=== PATIENT | female | born 1960 | race Caucasian/White ===

== ENCOUNTER 2017-09-12 13:38 | Inpatient (IN) | payer BC ==
[2017-09-12] MEDS: METHYLPREDNISOLONE 125 MG INJ IV (14:20)
[2017-09-12] MEDS: ALBUTEROL 0.5% (NEB) 2.5 MG/0.5 ML AMP NEB (14:22)
[2017-09-12] MEDS: IPRATROPIUM (NEB) 0.5 MG/2.5 ML AMP NEB (14:22)
[2017-09-12 14:42] LABS: ADD MAN DIFF? NO
[2017-09-12 14:44] LABS: BASOPHILS % 0.3 % (0.0-2.0); EOSINOPHILS # 0.2 10^3/ul (0.0-0.5); EOSINOPHILS % 2.4 % (0.0-7.0); HEMATOCRIT 37.4 % (37.0-47.0); HEMOGLOBIN 12.5 g/dl (12.0-16.0); LYMPHOCYTES # 1.6 10^3/ul (0.8-2.9); LYMPHOCYTES % 22.7 % (15.0-51.0); MEAN CORPUSCULAR HEMOGLOBIN 26.7 pg (29.0-33.0); MEAN CORPUSCULAR HGB CONC 33.4 g/dl (32.0-37.0); MEAN CORPUSCULAR VOLUME 79.7 fl (82.0-101.0); MEAN PLATELET VOLUME 9.9 fl (7.4-10.4); MONOCYTE # 0.5 10^3/ul (0.3-0.9); MONOCYTES % 7.5 % (0.0-11.0); NEUTROPHIL # 4.8 10^3/ul (1.6-7.5); NEUTROPHILS % 66.8 % (39.0-77.0); PLATELET COUNT 221 10^3/UL (140-415); RED BLOOD COUNT 4.69 10^6/ul (4.20-5.40); RED CELL DISTRIBUTION WIDTH 14.3 % (11.5-14.5)
[2017-09-12 14:44] LABS: WHITE BLOOD COUNT 7.2 10^3/ul (4.8-10.8)
[2017-09-12 15:11] LABS: ANION GAP 21 (8-16); BLOOD UREA NITROGEN 14 mg/dl (7-20); CALCIUM 9.2 mg/dl (8.4-10.2); CARBON DIOXIDE 25 mmol/L (21-31); CHLORIDE 100 mmol/L (97-110); CREATININE 0.74 mg/dl (0.44-1.00); GLUCOSE 208 mg/dl (70-220); POTASSIUM 3.9 mmol/L (3.5-5.1); SODIUM 142 mmol/L (135-144)
[2017-09-12 15:40] LABS: TROPONIN-I < 0.012 ng/ml (0.00-0.12)
[2017-09-12] MEDS: ALBUTEROL 0.083% (NEB) 2.5 MG/3 ML AMP HHN (16:59)
[2017-09-12] MEDS: IPRATROPIUM (NEB) 0.5 MG/2.5 ML AMP HHN (17:00)
[2017-09-12] MEDS ORDERED: ACETAMINOPHEN 325 MG TAB PO ×2 (17:30→18:30)
[2017-09-12] MEDS ORDERED: ONDANSETRON 4 MG INJ IV ×2 (17:30→18:30)
[2017-09-12] MEDS ORDERED: HYDROCODONE/APAP (5/325) TAB PO (18:30)
[2017-09-12] MEDS ORDERED: DOCUSATE SODIUM 100 MG CAP PO (18:30)
[2017-09-12] MEDS ORDERED: ZOLPIDEM 5 MG TAB PO (18:30)
[2017-09-12] MEDS ORDERED: NACL 0.9% 3 ML SYG IV (18:30)
[2017-09-12] MEDS ORDERED: GLUCAGON 1 MG INJ IM (19:00)
[2017-09-12] MEDS ORDERED: DEXTROSE 50% 50 ML SYRINGE IV ×2 (19:00)
[2017-09-12] MEDS ORDERED: GLUCOSE GEL 15 GRAM TUBE PO ×2 (19:00)
[2017-09-12] MEDS ORDERED: GLUCOSE GEL 15 GRAM TUBE BUCCAL (19:00)
[2017-09-12] MEDS: morphine 2 MG INJ IV ×2 (19:38→21:45)
[2017-09-12] MEDS: SALMETEROL/FLUTICASONE 250/50 INHA INH (21:04)
[2017-09-12] MEDS: INSULIN GLARGINE [LANtus] 3 ML PEN SC (21:13)
[2017-09-12] MEDS: INSULIN ASPART [NOVOLOG] 3 ML PEN SC (21:15)
[2017-09-12] MEDS: ALBUTEROL/IPRATROPIUM (NEB) 3 ML AMP HHN (21:56)
[2017-09-13] MEDS: METHYLPREDNISOLONE 125 MG INJ IV ×4 (00:08→22:27)
[2017-09-13] MEDS: ACCU-CHEK XX (02:00)
[2017-09-13] MEDS: INSULIN ASPART [NOVOLOG] 3 ML PEN SC ×7 (08:22→21:06)
[2017-09-13] MEDS: SALMETEROL/FLUTICASONE 250/50 INHA INH ×2 (08:24→20:59)
[2017-09-13 08:58] LABS: ADD MAN DIFF? NO
[2017-09-13 09:06] LABS: HEMATOCRIT 37.1 % (37.0-47.0); HEMOGLOBIN 12.2 g/dl (12.0-16.0); LYMPHOCYTES # 0.7 10^3/ul (0.8-2.9); MEAN CORPUSCULAR HEMOGLOBIN 26.2 pg (29.0-33.0); MEAN CORPUSCULAR HGB CONC 32.9 g/dl (32.0-37.0); MEAN CORPUSCULAR VOLUME 79.8 fl (82.0-101.0); MEAN PLATELET VOLUME 10.2 fl (7.4-10.4); MONOCYTE # 0.3 10^3/ul (0.3-0.9); MONOCYTES % 3.9 % (0.0-11.0); NEUTROPHIL # 5.4 10^3/ul (1.6-7.5); NEUTROPHILS % 84.6 % (39.0-77.0); PLATELET COUNT 231 10^3/UL (140-415); RED BLOOD COUNT 4.65 10^6/ul (4.20-5.40); RED CELL DISTRIBUTION WIDTH 14.1 % (11.5-14.5)
[2017-09-13 09:06] LABS: WHITE BLOOD COUNT 6.4 10^3/ul (4.8-10.8)
[2017-09-13 09:27] LABS: ANION GAP 15 (8-16); BLOOD UREA NITROGEN 15 mg/dl (7-20); CALCIUM 9.3 mg/dl (8.4-10.2); CARBON DIOXIDE 25 mmol/L (21-31); CHLORIDE 103 mmol/L (97-110); CREATININE 0.53 mg/dl (0.44-1.00); GLUCOSE 265 mg/dl (70-220); MAGNESIUM 1.8 mg/dl (1.7-2.5); PHOSPHORUS 4.3 mg/dl (2.5-4.9); POTASSIUM 4.4 mmol/L (3.5-5.1); SODIUM 139 mmol/L (135-144)
[2017-09-13 09:46] LABS: HEMOGLOBIN A1C 9.3 % (0-5.9)
[2017-09-13] MEDS: ALBUTEROL/IPRATROPIUM (NEB) 3 ML AMP HHN (11:30)
[2017-09-13] MEDS: PROMETHAZINE/CODEINE 5ML CUP PO (17:08)
[2017-09-13] MEDS ORDERED: INSULIN GLARGINE [LANtus] 3 ML PEN SC (20:00)
[2017-09-13] MEDS: INSULIN GLARGINE [LANtus] 3 ML PEN SC (21:05)
[2017-09-14] MEDS: ACCU-CHEK XX (02:00)
[2017-09-14] MEDS: METHYLPREDNISOLONE 125 MG INJ IV ×2 (06:32→14:00)
[2017-09-14] MEDS: SALMETEROL/FLUTICASONE 250/50 INHA INH ×2 (08:24→20:50)
[2017-09-14] MEDS: INSULIN ASPART [NOVOLOG] 3 ML PEN SC ×7 (08:26→21:02)
[2017-09-14] MEDS: ALBUTEROL/IPRATROPIUM (NEB) 3 ML AMP HHN ×3 (09:15→20:43)
[2017-09-14] MEDS: METHYLPREDNISOLONE 40 MG INJ IV (20:50)
[2017-09-14] MEDS: INSULIN GLARGINE [LANtus] 3 ML PEN SC (22:26)
[2017-09-15] MEDS: ALBUTEROL/IPRATROPIUM (NEB) 3 ML AMP HHN ×2 (01:17→09:59)
[2017-09-15] MEDS: ACCU-CHEK XX (02:00)
[2017-09-15] MEDS: METHYLPREDNISOLONE 40 MG INJ IV ×2 (07:36→20:55)
[2017-09-15] MEDS: SALMETEROL/FLUTICASONE 250/50 INHA INH ×2 (07:36→20:54)
[2017-09-15] MEDS: INSULIN ASPART [NOVOLOG] 3 ML PEN SC ×7 (07:39→21:00)
[2017-09-15 08:21] LABS: AADO2 Arterial 173.1 mmHg (7.0-24.0); Allen Test ACCEPTAB; Arterial Base Excess -1.5 mmol/L (-3.0-3); Arterial Blood Gas Oxygen Sat 93.5 mmHG (95.0-98.0); Arterial COHb 0.3 % (0.0-3.0); Arterial Fraction of Oxyhgb 93.2 % (93.0-99.0); Arterial HCO3 21.6 mmol/L (22.0-26.0); Arterial MetHb 0 % (0.0-1.5); Arterial pCO2 31.9 mmhg (35-45); MODE NASAL CANNULA; Site Right Radial
[2017-09-15] MEDS: INSULIN GLARGINE [LANtus] 3 ML PEN SC (20:57)
[2017-09-16] MEDS: ACCU-CHEK XX (02:00)
[2017-09-16] MEDS: INSULIN ASPART [NOVOLOG] 3 ML PEN SC ×7 (07:48→21:00)
[2017-09-16] MEDS: SALMETEROL/FLUTICASONE 250/50 INHA INH ×2 (07:49→21:54)
[2017-09-16] MEDS: METHYLPREDNISOLONE 40 MG INJ IV (07:49)
[2017-09-16] MEDS: predniSONE 20 MG TAB PO (14:17)
[2017-09-16] MEDS: INSULIN GLARGINE [LANtus] 3 ML PEN SC (21:56)
[2017-09-17] MEDS: ACCU-CHEK XX (02:00)
[2017-09-17] MEDS: SALMETEROL/FLUTICASONE 250/50 INHA INH (08:13)
[2017-09-17] MEDS: predniSONE 20 MG TAB PO (08:14)
[2017-09-17] MEDS: INSULIN ASPART [NOVOLOG] 3 ML PEN SC ×4 (08:15→11:56)
== END 2017-09-17 14:30 | disposition home or self-care (01) | DRG 203 ==
LOC: MS4 17:09 → FTE 13:38
PROC: 5A09357 Assistance with Respiratory Ventilation, Less than 24 Consecutive Hours, Continuous Positive Airway Pressure (ICD-10-PCS; principal; 2017-09-12)
DX: J45.901 Unspecified asthma with (acute) exacerbation (principal); E11.9 Type 2 diabetes mellitus without complications; R09.02 Hypoxemia; J20.9 Acute bronchitis, unspecified; J06.9 Acute upper respiratory infection, unspecified; Z79.4 Long term (current) use of insulin; Z90.49 Acquired absence of other specified parts of digestive tract
CPT/HCPCS: 36415; 36600; 71045; 80048; 82803; 82962; 83036; 83735; 84100; 84484; 85025; 87400; 93005; 94640; 94644; 94645; 94660; 94664; 96372; 96374; 96375; 96376; 99291-25

== ENCOUNTER 2018-08-17 16:17 | Inpatient (IN) | payer BC ==
[2018-08-17 16:58] LABS: HEMATOCRIT 39.1 % (37.0-47.0); HEMOGLOBIN 12.9 g/dl (12.0-16.0); MEAN CORPUSCULAR HEMOGLOBIN 25.6 pg (29.0-33.0); MEAN CORPUSCULAR VOLUME 77.6 fl (82.0-101.0); MEAN PLATELET VOLUME 9.8 fl (7.4-10.4); PLATELET COUNT 267 10^3/UL (140-415); RED BLOOD COUNT 5.04 10^6/ul (4.20-5.40); RED CELL DISTRIBUTION WIDTH 13.1 % (11.5-14.5)
[2018-08-17 16:58] LABS: WHITE BLOOD COUNT 8.3 10^3/ul (4.8-10.8)
[2018-08-17] MEDS: METHYLPREDNISOLONE 125 MG INJ IV (16:58)
[2018-08-17] MEDS: ALBUTEROL 0.5% (NEB) 2.5 MG/0.5 ML AMP INH ×2 (16:58→18:59)
[2018-08-17] MEDS: IPRATROPIUM (NEB) 0.5 MG/2.5 ML AMP INH (16:58)
[2018-08-17 16:59] LABS: ADD MAN DIFF? YES
[2018-08-17 17:15] LABS: ANION GAP 15 (5-13); BLOOD UREA NITROGEN 10 mg/dl (7-20); CALCIUM 9.7 mg/dl (8.4-10.2); CARBON DIOXIDE 22 mmol/L (21-31); CHLORIDE 97 mmol/L (97-110); CREATININE 0.72 mg/dl (0.44-1.00); Estimated GFR > 60 mL/min (>60); POTASSIUM 4.6 mmol/L (3.5-5.1); SODIUM 134 mmol/L (135-144)
[2018-08-17 17:24] LABS: GLUCOSE 424 mg/dl (70-220)
[2018-08-17 17:26] LABS: ANISOCYTOSIS 1+ (0-0); BASOPHILS % (M) 1 % (0-2); EOSINOPHILS % (M) 16 % (0-7); LYMPHOCYTES #M 1.4 10^3/ul (0.8-2.9); LYMPHOCYTES % (M) 17 % (15-51); MICROCYTOSIS 1+ (0-0); MONOCYTE #M 0.3 10^3/ul (0.3-0.9); MONOCYTES % (M) 4 % (0-11); PLATELET ESTIMATE NORMAL; POIKILOCYTOSIS 1+ (0-0); SEGMENTED NEUTROPHILS (M) % 62 % (39-77); SMUDGE%M 7 % (0-0)
[2018-08-17 17:27] LABS: TROPONIN-I < 0.012 ng/ml (0.000-0.120)
[2018-08-17] MEDS: SOD CHLORIDE 0.9% 1,000 ML IV (18:44)
[2018-08-17] MEDS ORDERED: ACETAMINOPHEN 325 MG TAB PO (21:30)
[2018-08-17] MEDS ORDERED: ONDANSETRON 4 MG INJ IV ×2 (21:30→22:00)
[2018-08-17] MEDS: INSULIN REGULAR 10 ML INJ IV (21:51)
[2018-08-17] MEDS ORDERED: ALBUTEROL 0.083% (NEB) 2.5 MG/3 ML AMP HHN (22:00)
[2018-08-17] MEDS ORDERED: NACL 0.9% 3 ML SYG IV (22:00)
[2018-08-17] MEDS: INSULIN GLARGINE [LANTus] (100 UNITS/ML) SYG SC (23:09)
[2018-08-17] MEDS: HEPARIN 5,000 UNIT/1 ML VIAL SC (23:10)
[2018-08-18] MEDS: ACCU-CHEK XX (02:00)
[2018-08-18] MEDS: ALBUTEROL 0.083% (NEB) 2.5 MG/3 ML AMP HHN ×2 (02:18→05:31)
[2018-08-18] MEDS: INSULIN ASPART [NOVOLOG] 3 ML PEN SC ×5 (02:47→20:58)
[2018-08-18] MEDS: HEPARIN 5,000 UNIT/1 ML VIAL SC (05:46)
[2018-08-18 06:06] LABS: ADD MAN DIFF? NO
[2018-08-18 06:14] LABS: WHITE BLOOD COUNT 9.5 10^3/ul (4.8-10.8)
[2018-08-18 06:14] LABS: EOSINOPHILS % 0.1 % (0.0-7.0); HEMATOCRIT 36.8 % (37.0-47.0); LYMPHOCYTES % 10.9 % (15.0-51.0); MEAN CORPUSCULAR HEMOGLOBIN 25.4 pg (29.0-33.0); MEAN CORPUSCULAR HGB CONC 32.6 g/dl (32.0-37.0); MEAN PLATELET VOLUME 10.1 fl (7.4-10.4); MONOCYTE # 0.4 10^3/ul (0.3-0.9); MONOCYTES % 3.9 % (0.0-11.0); NEUTROPHIL # 8.1 10^3/ul (1.6-7.5); NEUTROPHILS % 84.8 % (39.0-77.0); PLATELET COUNT 263 10^3/UL (140-415); RED BLOOD COUNT 4.72 10^6/ul (4.20-5.40); RED CELL DISTRIBUTION WIDTH 13.1 % (11.5-14.5)
[2018-08-18 06:33] LABS: HEMOGLOBIN A1C 10.7 % (0-5.9)
[2018-08-18 06:51] LABS: ALANINE AMINOTRANSFERASE 17 IU/L (13-69); ALBUMIN 3.9 g/dl (3.3-4.9); ALBUMIN/GLOBULIN RATIO 1.77; ALKALINE PHOSPHATASE 66 IU/L (42-121); ANION GAP 15 (5-13); ASPARTATE AMINO TRANSFERASE 16 IU/L (15-46); BLOOD UREA NITROGEN 11 mg/dl (7-20); CALCIUM 9.9 mg/dl (8.4-10.2); CARBON DIOXIDE 22 mmol/L (21-31); CHLORIDE 103 mmol/L (97-110); CHOL/HDL RATIO 3.4 RATIO; CHOLESTEROL 225 mg/dl (100-200); CREATININE 0.45 mg/dl (0.44-1.00); Estimated GFR > 60 mL/min (>60); GLUCOSE 255 mg/dl (70-220); HDL CHOLESTEROL 66 mg/dl (37-92); LDL CHOLESTEROL,CALCULATED 146 mg/dl; MAGNESIUM 1.6 mg/dl (1.7-2.5); POTASSIUM 4.4 mmol/L (3.5-5.1); SODIUM 140 mmol/L (135-144); TOTAL PROTEIN 6.1 g/dl (6.1-8.1); TRIGLYCERIDES 67 mg/dl (0-149)
[2018-08-18 07:13] LABS: THYROID STIMULATING HORMONE 0.095 MIU/L (0.465-4.680)
[2018-08-18] MEDS: METHYLPREDNISOLONE 40 MG INJ IV ×2 (08:56→20:55)
[2018-08-18] MEDS: FLUTICASONE/VILANTEROL 100-25 INH (08:56)
[2018-08-18] MEDS ORDERED: NON-FORMULARY/PATIENT OWN MED (Salmeterol Xinaf/Fluticasone* (Advair*) 1 INH) INHALATION (09:00)
[2018-08-18] MEDS ORDERED: predniSONE 20 MG TAB PO (09:00)
[2018-08-18] MEDS: LEVALBUTEROL (NEB) 0.63 MG/3 ML AMP HHN ×4 (09:00→20:10)
[2018-08-18] MEDS ORDERED: GLUCAGON 1 MG INJ IM (09:00)
[2018-08-18] MEDS ORDERED: GLUCOSE GEL 15 GRAM TUBE BUCCAL (09:00)
[2018-08-18] MEDS ORDERED: GLUCOSE GEL 15 GRAM TUBE PO ×2 (09:00)
[2018-08-18] MEDS ORDERED: LEVALBUTEROL (NEB) 0.63 MG/3 ML AMP HHN (09:00)
[2018-08-18] MEDS ORDERED: DEXTROSE 50% 50 ML SYRINGE IV ×2 (09:00)
[2018-08-18] MEDS: ACETAMINOPHEN 325 MG TAB PO (11:07)
[2018-08-18] MEDS: INSULIN ASP PROT/ASPART (70/30) PEN SC ×2 (11:11→20:56)
[2018-08-18] MEDS: ENOXAPARIN 40 MG/0.4 ML SYG SC (11:12)
[2018-08-18] MEDS: AZITHROMYCIN 500MG/NS (PMX) 250 ML IVPB (13:49)
[2018-08-19] MEDS: ACCU-CHEK XX (02:00)
[2018-08-19] MEDS: INSULIN ASPART [NOVOLOG] 3 ML PEN SC ×4 (08:10→20:20)
[2018-08-19] MEDS: LEVALBUTEROL (NEB) 0.63 MG/3 ML AMP HHN ×4 (08:35→21:00)
[2018-08-19] MEDS: METHYLPREDNISOLONE 40 MG INJ IV ×2 (09:09→20:21)
[2018-08-19] MEDS: INSULIN ASP PROT/ASPART (70/30) PEN SC ×2 (09:09→20:19)
[2018-08-19] MEDS: ENOXAPARIN 40 MG/0.4 ML SYG SC (09:09)
[2018-08-19] MEDS: FLUTICASONE/VILANTEROL 100-25 INH (09:10)
[2018-08-19] MEDS: AZITHROMYCIN 250 MG TAB PO (09:10)
[2018-08-19] MEDS ORDERED: POLYETHYLENE GLYCOL 17 GM PACKET PO (12:00)
[2018-08-19] MEDS: GUAIFENESIN LA 600 MG TABSR PO ×2 (13:49→20:21)
[2018-08-19] MEDS ORDERED: INSULIN GLARGINE [LANTus] (100 UNITS/ML) SYG SC (20:00)
[2018-08-19] MEDS: INSULIN GLARGINE [LANTus] (100 UNITS/ML) SYG SC (20:18)
[2018-08-20] MEDS: ACCU-CHEK XX (02:00)
[2018-08-20] MEDS: INSULIN ASPART [NOVOLOG] 3 ML PEN SC ×6 (02:59→20:37)
[2018-08-20] MEDS: METHYLPREDNISOLONE 40 MG INJ IV ×2 (08:14→20:35)
[2018-08-20] MEDS: AZITHROMYCIN 250 MG TAB PO (08:15)
[2018-08-20] MEDS: GUAIFENESIN LA 600 MG TABSR PO ×2 (08:15→20:37)
[2018-08-20] MEDS: INSULIN ASP PROT/ASPART (70/30) PEN SC ×2 (08:15→20:35)
[2018-08-20] MEDS: ENOXAPARIN 40 MG/0.4 ML SYG SC (08:16)
[2018-08-20] MEDS: FLUTICASONE/VILANTEROL 100-25 INH (08:16)
[2018-08-20] MEDS: LEVALBUTEROL (NEB) 0.63 MG/3 ML AMP HHN ×4 (08:21→20:14)
[2018-08-20] MEDS: INSULIN GLARGINE [LANTus] (100 UNITS/ML) SYG SC (20:34)
[2018-08-21 06:15] LABS: ANION GAP 11 (5-13); BLOOD UREA NITROGEN 23 mg/dl (7-20); CALCIUM 9.8 mg/dl (8.4-10.2); CARBON DIOXIDE 26 mmol/L (21-31); CHLORIDE 100 mmol/L (97-110); CREATININE 0.56 mg/dl (0.44-1.00); GLUCOSE 299 mg/dl (70-220); MAGNESIUM 1.9 mg/dl (1.7-2.5); PHOSPHORUS 4.9 mg/dl (2.5-4.9); POTASSIUM 4.8 mmol/L (3.5-5.1); SODIUM 137 mmol/L (135-144)
[2018-08-21] MEDS: INSULIN ASPART [NOVOLOG] 3 ML PEN SC ×4 (08:00→11:57)
[2018-08-21] MEDS: ENOXAPARIN 40 MG/0.4 ML SYG SC (08:01)
[2018-08-21] MEDS: AZITHROMYCIN 250 MG TAB PO (08:02)
[2018-08-21] MEDS: GUAIFENESIN LA 600 MG TABSR PO (08:02)
[2018-08-21] MEDS: FLUTICASONE/VILANTEROL 100-25 INH (08:02)
[2018-08-21] MEDS: LEVALBUTEROL (NEB) 0.63 MG/3 ML AMP HHN ×2 (08:09→12:59)
[2018-08-21] MEDS: predniSONE 20 MG TAB PO (08:48)
== END 2018-08-21 13:45 | disposition home or self-care (01) | DRG 203 ==
LOC: E/R 16:17 → PP2 21:17
DX: J45.901 Unspecified asthma with (acute) exacerbation (principal); E11.9 Type 2 diabetes mellitus without complications
CPT/HCPCS: 71045; 80048; 80053; 80061; 80069; 82962; 83036; 83735; 84443; 84484; 85025; 93005; 94640; 94644; 94645; 94664; 96361; 96374; 99285-25

== ENCOUNTER 2018-10-14 13:25 | Inpatient (IN) | payer BC ==
[2018-10-14 13:59] LABS: ADD MAN DIFF? NO
[2018-10-14] MEDS: SODIUM CHLORIDE 0.9% 1L BAG IV* (14:00)
[2018-10-14] MEDS: DEXAMETHASONE 10 MG/ML 1 ML INJ IV (14:00)
[2018-10-14] MEDS: CEFTRIAXONE 1 GM/50 ML (PMX) 50 ML IVPB (14:00)
[2018-10-14 14:05] LABS: ABNORMAL IP MESSAGE 1; BASOPHIL # 0.1 10^3/ul (0.0-0.1); BASOPHILS % 0.4 % (0.0-2.0); EOSINOPHILS % 15.5 % (0.0-7.0); HEMATOCRIT 39.4 % (37.0-47.0); HEMOGLOBIN 12.7 g/dl (12.0-16.0); LYMPHOCYTES # 2.9 10^3/ul (0.8-2.9); LYMPHOCYTES % 22.4 % (15.0-51.0); MEAN CORPUSCULAR HEMOGLOBIN 24.4 pg (29.0-33.0); MEAN CORPUSCULAR HGB CONC 32.2 g/dl (32.0-37.0); MEAN CORPUSCULAR VOLUME 75.6 fl (82.0-101.0); MEAN PLATELET VOLUME 9.8 fl (7.4-10.4); MONOCYTE # 0.8 10^3/ul (0.3-0.9); MONOCYTES % 6.1 % (0.0-11.0); NEUTROPHIL # 7.2 10^3/ul (1.6-7.5); NEUTROPHILS % 55.1 % (39.0-77.0); PLATELET COUNT 306 10^3/UL (140-415); RED BLOOD COUNT 5.21 10^6/ul (4.20-5.40); RED CELL DISTRIBUTION WIDTH 13.9 % (11.5-14.5)
[2018-10-14 14:08] LABS: POSITIVE DIFF @See below
[2018-10-14] MEDS: ALBUTEROL 0.5% (NEB) 2.5 MG/0.5 ML AMP INH ×2 (14:16→15:22)
[2018-10-14 14:17] LABS: ADD UMIC NO; UR ASCORBIC ACID NEGATIVE (NEGATIVE); UR BILIRUBIN (Dip) NEGATIVE (NEGATIVE); UR BLOOD (Dip) NEGATIVE (NEGATIVE); UR CLARITY CLEAR (CLEAR); UR COLOR STRAW (YELLOW); UR GLUCOSE (Dip) NEGATIVE (NEGATIVE); UR KETONES (Dip) NEGATIVE (NEGATIVE); UR LEUKOCYTE ESTERASE (Dip) NEGATIVE Leu/ul (NEGATIVE); UR NITRITE (Dip) NEGATIVE (NEGATIVE); UR SPECIFIC GRAVITY (Dip) 1.005 (1.003-1.030); UR TOTAL PROTEIN (Dip) NEGATIVE (NEGATIVE); UR UROBILINOGEN (Dip) NEGATIVE (NEGATIVE)
[2018-10-14 14:24] LABS: ALANINE AMINOTRANSFERASE 20 IU/L (13-69); ALBUMIN 4.5 g/dl (3.3-4.9); ALKALINE PHOSPHATASE 117 IU/L (42-121); ANION GAP 11 (5-13); ASPARTATE AMINO TRANSFERASE 18 IU/L (15-46); BILIRUBIN,INDIRECT 0.1 mg/dl (0-1.1); BILIRUBIN,TOTAL 0.1 mg/dl (0.2-1.3); BLOOD UREA NITROGEN 13 mg/dl (7-20); CALCIUM 9.9 mg/dl (8.4-10.2); CARBON DIOXIDE 26 mmol/L (21-31); CHLORIDE 99 mmol/L (97-110); CREATININE 0.52 mg/dl (0.44-1.00); Estimated GFR > 60 mL/min (>60); GLUCOSE 237 mg/dl (70-220); POTASSIUM 4.1 mmol/L (3.5-5.1); SODIUM 136 mmol/L (135-144)
[2018-10-14] MEDS: MAGNESIUM SULFATE 2 GM/50 ML 50 ML IVPB (14:24)
[2018-10-14 14:25] LABS: INR 0.84; PROTIME 11.6 Sec (11.9-14.9); PT RATIO 0.9
[2018-10-14] MEDS: AZITHROMYCIN 500MG/NS (PMX) 250 ML IV (14:25)
[2018-10-14 14:26] LABS: PARTIAL THROMBOPLASTIN TIME 27.6 Sec (23.0-35.0)
[2018-10-14 14:35] LABS: TROPONIN-I < 0.012 ng/ml (0.000-0.120)
[2018-10-14] MEDS: IPRATROPIUM (NEB) 0.5 MG/2.5 ML AMP INH (15:22)
[2018-10-14] MEDS ORDERED: ONDANSETRON 4 MG INJ IV ×2 (16:00→17:00)
[2018-10-14] MEDS ORDERED: ACETAMINOPHEN 325 MG TAB PO (16:00)
[2018-10-14] MEDS ORDERED: MAGNESIUM HYDROXIDE 30ML CUP PO (17:00)
[2018-10-14] MEDS ORDERED: ALBUTEROL 0.083% (NEB) 2.5 MG/3 ML AMP HHN (17:00)
[2018-10-14] MEDS ORDERED: DOCUSATE SODIUM 100 MG CAP PO (17:00)
[2018-10-14] MEDS ORDERED: NACL 0.9% 3 ML SYG IV (17:00)
[2018-10-14] MEDS ORDERED: GLUCOSE GEL 15 GRAM TUBE PO ×2 (17:30)
[2018-10-14] MEDS ORDERED: GLUCAGON 1 MG INJ IM (17:30)
[2018-10-14] MEDS ORDERED: DEXTROSE 50% 50 ML SYRINGE IV ×2 (17:30)
[2018-10-14] MEDS ORDERED: GLUCOSE GEL 15 GRAM TUBE BUCCAL (17:30)
[2018-10-14] MEDS: glipiZIDE 10 MG TAB PO (18:15)
[2018-10-14 19:05] LABS: LACTIC ACID 3.9 mmol/L (0.5-2.0)
[2018-10-14] MEDS: SOD CHLORIDE 0.9% 1,000 ML IV (20:08)
[2018-10-14] MEDS: FAMOTIDINE 20 MG TAB PO (20:13)
[2018-10-14] MEDS: ALBUTEROL/IPRATROPIUM (NEB) 3 ML AMP HHN (20:51)
[2018-10-14] MEDS: INSULIN ASPART [NOVOLOG] 3 ML PEN SC ×2 (21:30→22:08)
[2018-10-14] MEDS: INSULIN ASP PROT/ASPART (70/30) PEN SC (22:09)
[2018-10-14] MEDS: METHYLPREDNISOLONE 40 MG INJ IV (22:09)
[2018-10-15] MEDS: INSULIN ASPART [NOVOLOG] 3 ML PEN SC ×7 (02:33→21:02)
[2018-10-15 06:13] LABS: ADD MAN DIFF? NO
[2018-10-15] MEDS: METHYLPREDNISOLONE 40 MG INJ IV ×3 (06:19→21:48)
[2018-10-15 06:27] LABS: WHITE BLOOD COUNT 7.1 10^3/ul (4.8-10.8)
[2018-10-15 06:27] LABS: BASOPHILS % 0.1 % (0.0-2.0); EOSINOPHILS % 0.1 % (0.0-7.0); HEMOGLOBIN 11.6 g/dl (12.0-16.0); MEAN CORPUSCULAR HEMOGLOBIN 24.7 pg (29.0-33.0); MEAN CORPUSCULAR HGB CONC 32.2 g/dl (32.0-37.0); MEAN CORPUSCULAR VOLUME 76.6 fl (82.0-101.0); MEAN PLATELET VOLUME 9.9 fl (7.4-10.4); MONOCYTE # 0.3 10^3/ul (0.3-0.9); MONOCYTES % 3.5 % (0.0-11.0); NEUTROPHIL # 5.8 10^3/ul (1.6-7.5); NEUTROPHILS % 81.7 % (39.0-77.0); PLATELET COUNT 283 10^3/UL (140-415); RED CELL DISTRIBUTION WIDTH 13.8 % (11.5-14.5)
[2018-10-15 06:53] LABS: ANION GAP 8 (5-13); BLOOD UREA NITROGEN 12 mg/dl (7-20); CALCIUM 9.7 mg/dl (8.4-10.2); CARBON DIOXIDE 25 mmol/L (21-31); CHLORIDE 105 mmol/L (97-110); CREATININE 0.47 mg/dl (0.44-1.00); Estimated GFR > 60 mL/min (>60); GLUCOSE 227 mg/dl (70-220); PHOSPHORUS 3.4 mg/dl (2.5-4.9); POTASSIUM 4.7 mmol/L (3.5-5.1); SODIUM 138 mmol/L (135-144)
[2018-10-15 06:55] LABS: LACTIC ACID 1.7 mmol/L (0.5-2.0)
[2018-10-15] MEDS: ALBUTEROL/IPRATROPIUM (NEB) 3 ML AMP HHN ×3 (08:00→19:49)
[2018-10-15] MEDS: INSULIN ASP PROT/ASPART (70/30) PEN SC ×3 (08:04→21:48)
[2018-10-15] MEDS: ACETAMINOPHEN 325 MG TAB PO (08:05)
[2018-10-15] MEDS: FAMOTIDINE 20 MG TAB PO ×2 (08:05→21:00)
[2018-10-15] MEDS: ENOXAPARIN 40 MG/0.4 ML SYG SC (08:05)
[2018-10-15] MEDS: SOD CHLORIDE 0.9% 1,000 ML IV (08:09)
[2018-10-15] MEDS: FLUTICASONE/VILANTEROL 100-25 INH (09:36)
[2018-10-15] MEDS: metFORMIN 500 MG TAB PO ×2 (09:37→17:33)
[2018-10-15] MEDS: GUAIFENESIN LA 600 MG TABSR PO (12:00)
[2018-10-15] MEDS: CEFTRIAXONE 1 GM/50 ML (PMX) 50 ML IVPB (14:09)
[2018-10-15] MEDS: AZITHROMYCIN 500MG/NS (PMX) 250 ML IVPB (16:43)
[2018-10-16] MEDS: ALBUTEROL/IPRATROPIUM (NEB) 3 ML AMP HHN ×3 (07:40→20:17)
[2018-10-16] MEDS: METHYLPREDNISOLONE 40 MG INJ IV ×2 (07:50→14:20)
[2018-10-16] MEDS: INSULIN ASP PROT/ASPART (70/30) PEN SC ×2 (07:51→14:21)
[2018-10-16] MEDS: metFORMIN 500 MG TAB PO ×2 (07:52→17:17)
[2018-10-16] MEDS: INSULIN ASPART [NOVOLOG] 3 ML PEN SC ×4 (07:53→21:15)
[2018-10-16] MEDS: FAMOTIDINE 20 MG TAB PO ×2 (08:01→21:18)
[2018-10-16] MEDS: FLUTICASONE/VILANTEROL 100-25 INH (08:01)
[2018-10-16] MEDS: ENOXAPARIN 40 MG/0.4 ML SYG SC (08:02)
[2018-10-16] MEDS: CEFTRIAXONE 1 GM/50 ML (PMX) 50 ML IVPB (14:20)
[2018-10-16] MEDS: AZITHROMYCIN 500MG/NS (PMX) 250 ML IVPB (14:55)
[2018-10-16] MEDS: AMOXICILLIN/CLAV 500 MG TAB PO (21:17)
[2018-10-16] MEDS: GUAIFENESIN LA 600 MG TABSR PO (21:17)
[2018-10-16] MEDS: FLUTICASONE 0.05% 16 GM NAS SPRAY NASAL (21:17)
[2018-10-16] MEDS: MONTELUKAST 10 MG TAB PO (21:17)
[2018-10-17] MEDS: ALBUTEROL/IPRATROPIUM (NEB) 3 ML AMP HHN ×3 (07:39→20:29)
[2018-10-17] MEDS: FLUTICASONE 0.05% 16 GM NAS SPRAY NASAL ×2 (08:39→21:01)
[2018-10-17] MEDS: FAMOTIDINE 20 MG TAB PO ×2 (08:39→21:01)
[2018-10-17] MEDS: predniSONE 20 MG TAB PO (08:39)
[2018-10-17] MEDS: GUAIFENESIN LA 600 MG TABSR PO ×2 (08:39→21:01)
[2018-10-17] MEDS: FLUTICASONE/VILANTEROL 100-25 INH (08:39)
[2018-10-17] MEDS: INSULIN ASPART [NOVOLOG] 3 ML PEN SC ×5 (08:41→21:00)
[2018-10-17] MEDS: ENOXAPARIN 40 MG/0.4 ML SYG SC (08:42)
[2018-10-17] MEDS: metFORMIN 500 MG TAB PO ×2 (08:44→17:40)
[2018-10-17] MEDS: AMOXICILLIN/CLAV 500 MG TAB PO ×2 (09:05→21:01)
[2018-10-17] MEDS: MONTELUKAST 10 MG TAB PO (21:01)
[2018-10-18] MEDS: ENOXAPARIN 40 MG/0.4 ML SYG SC (08:14)
[2018-10-18] MEDS: INSULIN ASPART [NOVOLOG] 3 ML PEN SC ×6 (08:15→20:17)
[2018-10-18] MEDS: metFORMIN 500 MG TAB PO ×2 (08:17→17:31)
[2018-10-18] MEDS: predniSONE 20 MG TAB PO (08:18)
[2018-10-18] MEDS: FAMOTIDINE 20 MG TAB PO ×2 (08:18→20:17)
[2018-10-18] MEDS: GUAIFENESIN LA 600 MG TABSR PO ×2 (08:18→20:17)
[2018-10-18] MEDS: AMOXICILLIN/CLAV 500 MG TAB PO ×2 (08:18→20:17)
[2018-10-18] MEDS: FLUTICASONE/VILANTEROL 100-25 INH (08:18)
[2018-10-18] MEDS: FLUTICASONE 0.05% 16 GM NAS SPRAY NASAL ×2 (08:18→20:17)
[2018-10-18] MEDS: ALBUTEROL/IPRATROPIUM (NEB) 3 ML AMP HHN ×3 (08:37→20:59)
[2018-10-18] MEDS: INSULIN GLARGINE [LANTus] (100 UNITS/ML) SYG SC (20:16)
[2018-10-18] MEDS: MONTELUKAST 10 MG TAB PO (20:17)
[2018-10-19] MEDS: metFORMIN 500 MG TAB PO ×2 (08:11→17:37)
[2018-10-19] MEDS: INSULIN ASPART [NOVOLOG] 3 ML PEN SC ×7 (08:13→20:19)
[2018-10-19] MEDS: ACETAMINOPHEN 325 MG TAB PO (08:40)
[2018-10-19] MEDS: FAMOTIDINE 20 MG TAB PO ×2 (08:40→20:18)
[2018-10-19] MEDS: GUAIFENESIN LA 600 MG TABSR PO ×2 (08:41→20:18)
[2018-10-19] MEDS: AMOXICILLIN/CLAV 500 MG TAB PO ×2 (08:41→20:18)
[2018-10-19] MEDS: predniSONE 20 MG TAB PO (08:41)
[2018-10-19] MEDS: FLUTICASONE 0.05% 16 GM NAS SPRAY NASAL ×2 (08:42→20:18)
[2018-10-19] MEDS: ENOXAPARIN 40 MG/0.4 ML SYG SC (08:42)
[2018-10-19] MEDS: FLUTICASONE/VILANTEROL 100-25 INH (08:42)
[2018-10-19] MEDS ORDERED: FLUTICASONE/VILANTEROL 100-25 INH (11:00)
[2018-10-19] MEDS: MONTELUKAST 10 MG TAB PO (20:18)
[2018-10-19] MEDS: INSULIN GLARGINE [LANTus] (100 UNITS/ML) SYG SC (20:19)
[2018-10-20 06:28] LABS: ADD MAN DIFF? NO
[2018-10-20 06:37] LABS: BASOPHILS % 0.1 % (0.0-2.0); EOSINOPHILS # 0.3 10^3/ul (0.0-0.5); EOSINOPHILS % 2.9 % (0.0-7.0); HEMOGLOBIN 12.3 g/dl (12.0-16.0); LYMPHOCYTES # 4.5 10^3/ul (0.8-2.9); LYMPHOCYTES % 44.3 % (15.0-51.0); MEAN CORPUSCULAR HEMOGLOBIN 24.6 pg (29.0-33.0); MEAN CORPUSCULAR HGB CONC 32.4 g/dl (32.0-37.0); MEAN CORPUSCULAR VOLUME 75.8 fl (82.0-101.0); MEAN PLATELET VOLUME 10.2 fl (7.4-10.4); MONOCYTE # 0.8 10^3/ul (0.3-0.9); MONOCYTES % 7.6 % (0.0-11.0); NEUTROPHIL # 4.6 10^3/ul (1.6-7.5); NEUTROPHILS % 44.6 % (39.0-77.0); PLATELET COUNT 267 10^3/UL (140-415); RED BLOOD COUNT 5.01 10^6/ul (4.20-5.40); RED CELL DISTRIBUTION WIDTH 14.3 % (11.5-14.5)
[2018-10-20 06:37] LABS: WHITE BLOOD COUNT 10.3 10^3/ul (4.8-10.8)
[2018-10-20] MEDS: GUAIFENESIN LA 600 MG TABSR PO (08:05)
[2018-10-20] MEDS: AMOXICILLIN/CLAV 500 MG TAB PO (08:06)
[2018-10-20] MEDS: metFORMIN 500 MG TAB PO (08:06)
[2018-10-20] MEDS: FLUTICASONE 0.05% 16 GM NAS SPRAY NASAL (08:06)
[2018-10-20] MEDS: predniSONE 20 MG TAB PO (08:06)
[2018-10-20] MEDS: FLUTICASONE/VILANTEROL 100-25 INH (08:07)
[2018-10-20] MEDS: FAMOTIDINE 20 MG TAB PO (08:07)
[2018-10-20] MEDS: INSULIN ASPART [NOVOLOG] 3 ML PEN SC ×4 (08:09→12:06)
[2018-10-20] MEDS: ENOXAPARIN 40 MG/0.4 ML SYG SC (08:11)
[2018-10-20 08:16] LABS: ANION GAP 7 (5-13); BLOOD UREA NITROGEN 18 mg/dl (7-20); CALCIUM 9.8 mg/dl (8.4-10.2); CARBON DIOXIDE 30 mmol/L (21-31); CHLORIDE 101 mmol/L (97-110); CREATININE 0.59 mg/dl (0.44-1.00); Estimated GFR > 60 mL/min (>60); GLUCOSE 150 mg/dl (70-220); MAGNESIUM 1.8 mg/dl (1.7-2.5); PHOSPHORUS 3.8 mg/dl (2.5-4.9); SODIUM 138 mmol/L (135-144)
== END 2018-10-20 16:13 | disposition home or self-care (01) | DRG 202 ==
LOC: E/R 13:25 → PP2 15:53
PROC: 3E0F7GC Introduction of Other Therapeutic Substance into Respiratory Tract, Via Natural or Artificial Opening (ICD-10-PCS; principal; 2018-10-14)
DX: J45.41 Moderate persistent asthma with (acute) exacerbation (principal); E87.2 Acidosis; J96.01 Acute respiratory failure with hypoxia; E11.8 Type 2 diabetes mellitus with unspecified complications
CPT/HCPCS: 36415; 71045; 80048; 80053; 81003; 82962; 83036; 83605; 83735; 84100; 84443; 84484; 85025; 85610; 85730; 87040; 87086; 87400; 93005; 94640; 94644; 94645; 94664; 96374; 96375; 99291-25